=== PATIENT | female | born 1985 | race African-American/Black ===

== ENCOUNTER 2022-12-27 08:02 | Outpatient (CLI) | payer BC, SELFPAY ==
--- NOTE | 2023-01-14 21:35 | WPDHOMESLEEP ---
Sleep Study - Home Unattended Date of Study: 12/27/22 Ordering Provider: Dionna Dominguez, PA Interpreting Provider: Sarai Morales MD Home Sleep Study Type: Apnea Link Air Height: 1.5 m Weight: 97.976 kg Body Mass Index: 43.6 Neck Circumference (inches): 16.5 [place]: 12 Reason for Sleep Study Hypersomnolence Sleep History Samantha Carlos is a 37-year-old woman with complaints of biting her tongue during sleep. She is excessively sleepy in the day. There is a family history of sleep conditions with her brother and mother both having sleep apnea. She does not awaken from sleep feeling short of breath. She does not awaken at night with heartburn, belching or coughing. She always snores and it is always loud enough that others complain. She constantly has difficulty sleeping with a cold. She does not wake up gasping for breath at night or have breathing problems at night observed by others. She does not sweat excessively at night. She does not notice her heart pounding or beating irregularly at night. She occasionally falls asleep during the day. She does not fall asleep involuntarily. She does not fall asleep while driving. She does not have loss of muscle tone with strong emotion. She rarely has daytime difficulties due to excessive sleepiness. She does not feel paralyzed on waking or falling asleep. She rarely has vivid dreamlike scenes upon awakening or falling asleep. She does not feel afraid to go to sleep. she rarely has nightmares. She constantly remembers her dreams. She constantly has racing thoughts. She frequently feels sad or depressed. She constantly has anxiety. She does not have muscular tension. She rarely notices parts of her body jerking. She does not Kick at night. She does not have crawling or aching feelings in her legs. She does not have any kind of leg pain at night. She does not have morning jaw pain. She indicates that she constantly grinds her teeth during sleep however on her sleep questionnaire indicates it was more biting her tongue than grinding her teeth. She occasionally is bothered by pain during the day. She is not awakened by pain at night. She does not wake up feeling stiff in the morning. She does not wake up with sore achy muscles. She occasionally wakes up with pain in the neck and spine. Normal bedtime is 11:00 p.m., falling asleep within 1-2 hours, typically waking twice during the night. While awake, she goes to the bathroom. She may stay awake a short amount of time, sometimes longer. She may watch television while she is awake at night. Her normal wake time is 6:00 a.m.. On weekends, her bedtime varies. On weekends, her wake time is 8:00 a.m.. She generally does not take naps in the afternoon or evening. A short nap lasting 10 or 15 minutes might be refreshing. She is usually drowsy on waking. She feels better in the evening compared to other times of day. Habits: Tobacco : 1/3 pack per day. No caffeine. Alcohol: social consumption, 2 beverages over the weekend. No recreational substances. [facility] Past Medical History Medical History Depression Hyperprolactinemia Hypertension PCOS (polycystic ovarian syndrome) Surgical History Surgical History History of colposcopy with cervical biopsy 12/02/20 benign 11/07/18 benign 10/07/18 endocervical tissue with reactive changes Family History Family History Father Family history of seizure disorder Alcohol abuse Sibling Family history of lupus erythematosus sister Social History Social History Smoking status: Current every day smoker Tobacco type: cigarettes Alcohol intake: current Drinks per week: 2 Substance use: never Substance use type: does not use Living arrangemen
[2023-01-15 13:14] VITALS: BMI 43.6
--- NOTE | 2023-04-04 12:54 | SLEEP ---
new calls [id number]
== END 2022-12-28 10:34 | disposition home or self-care (01) ==
LOC: ANHCSM 08:09
PROVIDERS: Visit Provider Physician Assistant
DX: G47.9 Sleep disorder, unspecified (principal)
CPT/HCPCS: 95806

== ENCOUNTER 2023-02-17 09:42 | Outpatient (CLI) | payer BC, SELFPAY ==
--- NOTE | 2023-03-02 15:29 | WPDSLEEPSTUD ---
Sleep Study Date of Study: 02/17/23 Ordering Provider: Dionna Dominguez, PA Interpreting Physician: Sarai Morales MD Sleep Study Type: CPAP Titration Height: 1.5 m Weight: 88.451 kg Body Mass Index: 39.4 Neck Circumference (inches): 17 [place]: 12 Reason for Sleep Study * home sleep test using Apnea Link ?12/27/2022 shows moderate obstructive sleep apnea, the apnea-hypopnea index is 24.6, higher in the non-supine position, with frequent snoring and desaturation to 90%.?? She presents for a CPAP titraiton. The central apnea-hypopnea index is 2.8 and the mixed apnea index is 0.9. Together this total is less than 5 events per hour, within the normal range. ? She indicates on her sleep questionnaire that she has been biting her tongue at night since October. This can be seen in many conditions such as bruxism, movements disorders, and seizures.? I recommend a CPAP titration in the sleep lab without a sleep aid to titrate CPAP and look for seizure activity as well as possible bruxism.? The in-lab titration is also indicated to avoid worsening central apneas which can occur with APAP use. ? Sleep History Samantha Carlos is a 37-year-old woman with complaints of biting her tongue during sleep.? She is excessively sleepy in the day. There is a family history of sleep conditions with her brother and mother both having sleep apnea.? She does not awaken from sleep feeling short of breath.? She does not awaken at night with heartburn, belching or coughing.? She always snores and it is always loud enough that others complain.? She constantly has difficulty sleeping with a cold.? She does not wake up gasping for breath at night or have breathing problems at night observed by others.? She does not sweat excessively at night.? She does not notice her heart pounding or beating irregularly at night.? She occasionally falls asleep during the day.? She does not fall asleep involuntarily.? She does not fall asleep while driving.? She does not have loss of muscle tone with strong emotion.? She rarely has daytime difficulties due to excessive sleepiness.? She does not feel paralyzed on waking or falling asleep.? She rarely has vivid dreamlike scenes upon awakening or falling asleep.? She does not feel afraid to go to sleep.? she rarely has nightmares.? She constantly remembers her dreams.? She constantly has racing thoughts.? She frequently feels sad or depressed.? She constantly has anxiety.? She? does not? have muscular tension.? She rarely notices parts of her body jerking.? She does not ? Kick at night.? She does not have crawling or aching feelings in her legs.? She does not have any kind of leg pain at night.? She does not have morning jaw pain.? She indicates that she constantly grinds her teeth during sleep however on her sleep questionnaire indicates it was more biting her tongue than grinding her teeth.? She occasionally is bothered by pain during the day.? She is not awakened by pain at night.? She does not wake up feeling stiff in the morning.? She does not wake up with sore achy muscles.? She occasionally wakes up with pain in the neck and spine. Normal bedtime is 11:00 p.m., falling asleep within 1-2 hours, typically waking twice during the night.? While awake, she goes to the bathroom. She may stay awake a short amount of time, sometimes longer.? She may watch television while she is awake at night. ? Her normal wake time is 6:00 a.m..? On weekends, her bedtime varies.? On weekends, her wake time is 8:00 a.m..? She generally does not take naps in the afternoon or evening.? A short nap lasting 10 or 15 minutes might be refreshing.? She is usually drowsy on waking.? She feels better in the evening compared to other times of day. Habits: ? Tobacco : 1/3 pack per day.? No caffeine.? Alcohol: social consumption, 2 beverages over the weekend.? No recreational substances. [facility] Past Medical History Medical History Dep
[2023-03-02 15:30] VITALS: BMI 39.4
== END 2023-02-18 07:45 | disposition home or self-care (01) ==
LOC: ANHCSM 09:45
PROVIDERS: Visit Provider Physician Assistant
DX: G47.9 Sleep disorder, unspecified (principal); G47.33 Obstructive sleep apnea (adult) (pediatric)
CPT/HCPCS: 95811

== ENCOUNTER 2024-08-06 08:56 | Outpatient (CLI) | payer OTHER, SELFPAY ==
--- NOTE | ~2024-08-06 | XR_ITS ---
XR wrist LT min 3V 08/06/2024 09:33 INDICATION: Left wrist pain PROCEDURE: 4 views left wrist COMPARISON: No prior studies for comparison. FINDINGS: Fracture, dislocation or subluxation is not identified. The soft tissues appear within norm al limits. No foreign bodies are identified. IMPRESSION: 1: NO ACUTE BONE OR JOINT ABNORMALITY IDENTIFIED. Reviewed, dictated and finalized at location B. [employer]
== END 2024-08-06 08:57 | disposition home or self-care (01) ==
DX: M25.532 Pain in left wrist (principal)
CPT/HCPCS: 73110